=== PATIENT | male | born 1965 | race Caucasian/White ===

== ENCOUNTER 2018-08-29 05:36 | Day surgery (SDC) | payer OTHER ==
[~2018-08-29] VITALS: Ht 170.2 cm; Wt 88.9 kg
[~2018-08-29 05:36] MED LIST: CENTRUM SILVER1 EAC2 PO; OXYCODONE HCL 55 MG PO; TRAMADOL 50 MG50 MG PO
[2018-08-29 11:30] VITALS: BP 123/65
[2018-08-29 15:15] VITALS: BP 123/65
--- NOTE | 2018-09-02 17:57 | O ---
[facility] [place] [address] OPERATIVE REPORT Name: KATHERINE POWELL Room #: [facility].#: [id number] Admission: 08/29/18 ������������������ Attend Phys: Cory Jolley MD Discharge: 08/29/18 ������������������ Date of : 69 Report #: [id number] THIS REPORT FOR: //name// CC: FAM unknown Cory Jolley DATE OF SERVICE: 08/29/2018 SERVICE: Orthopedics. FACILITY: [facility]. SURGEON: Cory Jolley MD CREPE SOLE WIRE BRUSHER: Martha Reed NP INDICATIONS FOR CREPE SOLE WIRE BRUSHER: Soft tissue retraction, extremity positioning, assistance with the repair as well as wound closure. PREOPERATIVE DIAGNOSES: 1. Left hip pain. 2. Left hip gluteus medius abductor tendon tear. POSTOPERATIVE DIAGNOSES: 1. Left hip pain. 2. Left hip gluteus medius abductor tendon tear. 3. Left hip adhesions. 4. Left hip trochanteric bursitis. PROCEDURES: 1. Left hip open gluteus medius abductor tendon repair. 2. Left hip open lysis of adhesions with trochanteric bursectomy. COMPLICATIONS: None. DRAINS: None. SPECIMENS: None. ANESTHESIA: General. 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 He then had an acute injury to the left hip where he felt pain, a pop and had subsequent traumatic loss of abduction strength. [facility] shortly thereafter where physical examination was suspicious for an abductor tendon tear [facility] [address] [place] [address] OPERATIVE REPORT Name: KATHERINE POWELL Room #: [facility]P [facility].#: [id number] Admission: 08/29/18 ������������������ Attend Phys: Cory Jolley MD Discharge: 08/29/18 ������������������ Date of : 69 Report #: [id number] and an MRI later on confirmed this. Due to his active lifestyle and the appearance of the MRI and the dramatic strength loss that he demonstrated, we felt that open repair was the most appropriate option and he was in agreement. Risks, benefits, alternatives and indications of surgery were discussed with him in detail. Risks include but not limited to pain, bleeding, infection, injury to nerves or blood vessels, persistent pain despite surgical intervention, failure of the repair, need for further surgery including with compliant postoperative program, need for physical therapy, stiffness as well as complications related to anesthesia such as stroke, heart attack, pulmonary complications, thromboembolic disease and . Despite these risks, he wished to proceed. PROCEDURE IN DETAIL: After the left lower extremity was correctly identified in the preoperative holding area as the operative extremity, the patient was taken to the operating room where general anesthesia was induced without complication. He was padded appropriately. Prophylactic antibiotics were administered at appropriate time after he was turned into the lateral decubitus position with the left side up and right side down. The left leg was prepped and draped in standard sterile fashion. Time-out procedure was performed. A standard lateral approach was made. Dissection was taken down to the fascial layer. At this point, he was noted to have a significant amount of adhesions with the fascial layer stuck down to the gluteus musculature such that a plane was not readily distinguishable for placement of the Charnley retractor. This could be palpated up and down overlying the trochanter as well as along the abductors. I performed some additional blunt soft tissue dissection in order to generate a potential space at the area of normal soft tissue plane and then bluntly explored this and eventually achieving adequate space generally between the abductor musculature and greater trochanter plane relative to the overlying fascia. The lysis of adhesions was performed thoroughly proximally, anteriorly, distally and posteriorly in the soft tissues, which were much more mobile at this point. At this point as well, a significant amount of trochanteric bursitis was noted, which in fact had its own vascular supply, which was cauterized and then the trochanteric bursa was excised with electrocautery in bulk. This allowed exposure and good visualization of the trochanter and the abductor insertion and correlating with the preoperative MRI, the superficial fibers were in fact intact and appeared healthy. A longitudinal incision was made along the fibers and the deep layer was explored bluntly and an immediate ceja of seroma was obtained directly in the location of the tear, which correlated with the preoperative MRI. The tear itself was at the posterior portion of the gluteus medius tendon and was full thickness in that area. There was some tendinopathy that was quite apparent indicative of a more chronic condition followed by an acute injury. The tendon itself was relatively poor tissue quality and was short in terms of overall volume. There was some tendon still attached to the trochanter and overall, the trochanter was healthy in terms of the bony appearance, there was not an area of exposed bald trochanter. [facility] [address] [place] [address] OPERATIVE REPORT Name: KATHERINE POWELL Room #: [facility] M.R.#: [id number] Admission: 08/29/18 ������������������ Attend Phys: Cory Jolley MD Discharge: 08/29/18 ������������������ Date of : 69 Report #: [id number] The tendinopathic tissue at the side of the tear that was on the side of the trochanter was then debrided with a rongeur allowing access to the tip of the trochanter where the bone quality was quite good. The rongeur was used to gently decorticate to bleeding bone and then a [employer] suture tape was used to create a running locking stitch within the torn portion of the tendon and muscle while utilizing the healthy intact superficial fibers as well as the anterior fibers for reinforcement of the repair and then a [employer] ReelX anchor was placed in the bony bed. The sutures were appropriately pretensioned and then the anchor was deployed in the typical fashion with excellent bony purchase obtained after the anchor had been fully deployed and the sutures adequately advanced for an anatomic placement of the soft tissue tendon repair against the trochanter. One limb of the tape was then used to reinforce the repair, again sewing the torn deep fibers to the overlying healthy musculotendinous tissue and deep to superficial construct to reinforce the proximal to distal initial construct. Finally, the #2 suture from the anchor itself was used to oversew the repair as well as the site of the superficial soft tissue incision, which had been performed in order to obtain access to the tear itself. After this, running locking suture had been securely tied. The wound was copiously irrigated. The hip was rotated and the repair was noted to move as one unit. The fascial layer was then closed with 0 Vicryl suture. The superficial layers were closed with 0 Vicryl, followed by 2-0 Vicryl, running subcuticular 3-0 Monocryl and Dermabond. Sterile dressing was then applied. The patient was awakened from anesthesia and taken to recovery room in stable condition. No complications. All counts reported as correct. ��������������������������������������������� <ELECTRONICALLY SIGNED> ���������������������������������������� By: Cory Jolley MD ��������������������������������������������� 09/02/18 [id number] Cory Jolley MD /nt
== END 2018-08-29 16:30 | disposition home or self-care (01) ==
LOC: TBA 05:36 → OR 05:36
DX: S76.012A Strain of muscle, fascia and tendon of left hip, initial encounter (principal); M71.552 Other bursitis, not elsewhere classified, left hip; M24.852 Other specific joint derangements of left hip, not elsewhere classified; K21.9 Gastro-esophageal reflux disease without esophagitis; Z98.890 Other specified postprocedural states; Z79.899 Other long term (current) drug therapy; Z79.891 Long term (current) use of opiate analgesic; X58.XXXA Exposure to other specified factors, initial encounter; Y93.89 Activity, other specified; Y92.89 Other specified places as the place of occurrence of the external cause; Y99.8 Other external cause status
CPT/HCPCS: 50010; 50101; 50382; 50414; 52256; 53078; 54118; 55430; 56526; 56527; 56528; 57103; 62110; 62900; 70005